=== PATIENT | male | born 1995 | race Caucasian/White ===

== ENCOUNTER 2025-04-28 22:26 | Emergency (ER) | payer OTHER, SELFPAY | END 2025-04-28 23:20 | disposition home or self-care (01) | LOC: NAV ERS 22:26 | DX: S93.401A Sprain of unspecified ligament of right ankle, initial encounter (principal); X50.9XXA Other and unspecified overexertion or strenuous movements or postures, initial encounter | CPT/HCPCS: 99283 ==